=== PATIENT | female | born 1995 | race Caucasian/White ===

== ENCOUNTER 2021-02-10 20:04 | Emergency (ER) | payer MEDICAID, SELFPAY ==
--- NOTE | 2021-02-10 20:30 | RT.EKG_ITS ---
APPROVED REPORT Exam: Resting ECG Reason for Exam: chest pain Patient Location: E HR:109 bpm ECG Measurements Heart Rate 109 AXIS TN 127 P 61 QRSd 79 QRS 65 QT 318 T 29 QTc 428 Conclusion Sinus tachycardia...rate> 99 Probable left atrial enlargement...P >50mS, <-0.10mV V1
[2021-02-10 20:40] VITALS: BP 117/82; PULSE 118; RESP 20; TEMP 36.5; O2SAT 98
[2021-02-10 21:03] VITALS: RESP 20
[2021-02-10 21:04] VITALS: RESP 20
[2021-02-10] MEDS: LORazepam 1 MG TAB PO (22:13)
[2021-02-10 22:28] LABS: Abs Immature Grans 0.02 10^3/uL (0.0-0.06); Absolute Basophil Count 0.08 10^3/uL (0.0-0.2); Absolute Eosinophil Count 0.04 10^3/uL (0.0-0.7); Absolute Lymphocyte Count 2.29 10^3/uL (1.2-3.4); Absolute Monocyte Count 0.77 10^3/uL (0.1-0.8); Basophils % 0.9; Eosinophils % 0.5; HCT 42.6 % (36.0-46.0); HGB 13.7 g/dL (11.2-15.7); Immature Grans % 0.2; Lymphocytes % 26.3; MCH 29.2 pg (27.0-33.0); MCHC 32.2 % (32.0-36.0); MCV 90.8 fL (80-95); MPV 10.5 fL (8.0-11.0); Monocytes % 8.9; Neutrophils % 63.2; Nucleated RBC 0 %; Platelet Count 322 10^3/uL (130-400); RBC 4.69 10^6/uL (3.93-5.22); RDW 12.5 % (11.7-14.6); RDW-SD 41.6 fL
[2021-02-10 22:32] LABS: Bilirubin Negative (Negative); Blood Negative (Negative); Clarity Clear (Clear); Glucose Negative (Negative); Ketones Negative (Negative); Leukocyte Esterase Negative (Negative); Nitrite Negative (Negative); Urobilinogen 0.2 EU/dL (Up TO 0.2)
[2021-02-10 22:44] LABS: ALT 16 U/L (14-59); AST 8 U/L (15-37); Albumin 4.4 g/dL (3.4-5.0); Alkaline Phosphatase 53 U/L (46-116); Anion Gap 7.2 mmol/L (3-11); BUN 15 mg/dL (7-18); Bilirubin, Total 0.3 mg/dL (0.2-1.0); CO2 30.8 mmol/L (21.0-32.0); CREATININE 0.8 mg/dL (0.55-1.02); Calcium 9.3 mg/dL (8.5-10.1); Chloride 106 mmol/L (98-107); Glucose 101 mg/dL (74-106); Potassium 3.7 mmol/L (3.5-5.1); Sodium 144 mmol/L (136-145); Total Protein 8.2 g/dL (6.4-8.2); Troponin I < 0.05 ng/mL (<0.06)
[2021-02-10 22:53] LABS: D-Dimer 120 ng/mlFEU (<500)
--- NOTE | 2021-02-10 23:30 | W.ED.GENAD ---
Discharge Plan Disposition Patient Disposition: HOME Condition: Stable Discharge Details Clinical Impression: Anxiety, Intermittent lower abdominal pain Primary Care Provider: None,None ED Provider: Speedy Sepulveda Discharge Instructions Instructions: Alprazolam (By mouth), Abdominal Pain (ED), Anxiety (ED) Additional Instructions: Please follow[facility] with [facility]. Take Xanax 0.25 mg tablet by mouth once daily for severe anxiety Please contact your primary care physician to arrange follow-up. Return to the ER for any worsening or new concerning symptoms. Referrals: [facility] [Provider Group] [facility] [Provider Group] Medical Decision Making 25-year-old female here with severe anxiety, tearful and feeling overwhelmed, recent chest discomfort as well as shortness of breath and lower right abdominal pain intermittently over the past few weeks. Patient has no abdominal pain at this time. Abdominal exam is benign with no tenderness. Patient is quite anxious and tachycardic Screening ECG was reviewed and interpreted by me: Please see report, sinus tachycardia 109 bpm.. I considered acute pulmonary embolism as well as electrolyte abnormalities. Labs reviewed and nondiagnostic. D-dimer is negative. Troponin is negative. Patient was given Ativan 1 mg orally and then reassess. On reassessment she was noted to be significantly improved, feeling much better with no complaints. She states she feels relaxed. She continues to have no chest pain, shortness of breath or abdominal pain. Plan will be to discharge with outpatient follow-up. She will need primary care established in the area as well as follow-up with gynecology and psychiatric services. HPI General Mode of arrival: ambulatory. Date/Time Provider Initiated Documentation: 02/10/21 20:39. Limitations to Documentation: no limitations. Information obtained by: patient. HPI Narrative: 25-year-old female recently moved to the area, here with overwhelming anxiety. Symptoms are severe and constant just prior to arrival. She notes intermittent tearfulness and anxiety over the past few weeks. No modifiers. No known inciting triggers. Patient notes that she has had intermittent chest discomfort with these episodes and also shortness of breath. She has had some right lower abdominal pain that has been intermittent over the past few weeks. She does not currently have this pain. Pain sometimes seems to go into her vagina. She denies vaginal discharge. Patient does note an irregular missed. A few months back. She has since had regular periods. Patient has not yet established care with a primary care physician or national sales representative in the area. General Stated Complaint: GenMedical SAIDA: 3 Review of Systems All systems reviewed & are unremarkable except as noted in HPI and below Constitutional Constitutional: Denies fever(s) Genitourinary Genitourinary: Denies vaginal discharge [facility] Social History Smoking risk assessment performed?: No Exam Const General: in distress Nutritional Appearance: well nourished Orientation: alert and awake HENMT Head: normocephalic and atraumatic Mouth: moist mucous membranes Eyes Conjunctivae: normal conjunctivae Sclera: normal sclerae EOM: EOM intact bilaterally Neck Neck: trachea midline Resp Auscultation: clear to auscultation bilaterally, no rales, no rhonchi and no wheezes Cardio Jugular venous pressure: no JVD Rate: regular rate and not tachycardic Rhythm: regular rhythm GI Palpation: soft, not firm, no guarding, no masses, not rigid and nontender Skin General skin exam: no rashes or lesions noted Neuro General: patient alert, patient awake, patient oriented x3 and tone normal Extrem General: no edema Psych Appearance: grossly normal Mental Status: mental status grossly normal Speech and Movement: speech and movement normal Mood: anxious mood Affect: anxious affect Attitude: cooperative Thought Content: normal and suicidality Insight: insight good Other: Intermittently tearful Course Vital Signs Vital signs: Vital Signs Temperature 36.5 C 02/10/21 20:40 Pulse 118 H 02/10/21 20:40 Respiratory Rate 20 02/10/21 20:40 Blood Pressure 117/82 02/10/21 20:40 Pulse Oximetry 98 02/10/21 20:40 Temperature 36.5 C 02/10/21 20:40 Temperature Source Tympanic 02/10/21 20:40 Pulse 118 H 02/10/21 20:40 Respiratory Rate 20 02/10/21 21:04 Respiratory Effort Non-Labored 02/10/21 21:04 Respiratory Depth Normal 02/10/21 21:04 Respiratory Pattern Normal 02/10/21 21:03 Blood Pressure 117/82 02/10/21 20:40 Pulse Oximetry 98 02/10/21 20:40 Oxygen Delivery Method Room Air 05/21/21 20:40 Oxygen Flow Rate 0 02/10/21 20:40 Lab/Test Results Lab/Test Results: Laboratory Tests Range/Units 02/10/21 02/10/21 02/10/21 22:15 22:15 22:15 WBC (4.4-10.8) 10^3/uL 8.70 RBC (3.93-5.22) 10^6/uL 4.69 Hgb (11.2-15.7) g/dL 13.7 Hct (36.0-46.0) % 42.6 MCV (80-95) fL 90.8 MCH (27.0-33.0) pg 29.2 MCHC (32.0-36.0) % 32.2 RDW (11.7-14.6) % 12.5 Plt Count (130-400) 10^3/uL 322 MPV (8.0-11.0) fL 10.5 Immature Gran % 0.2 Neutrophils % 63.2 Lymphocytes % 26.3 Monocytes % 8.9 Eosinophils % 0.5 Basophils % 0.9 Nucleated RBC % % 0 Absolute Neutrophils (1.2-6.7) 10^3/uL 5.50 Absolute Lymphocytes (1.2-3.4) 10^3/uL 2.29 Absolute Monocytes (0.1-0.8) 10^3/uL 0.77 Absolute Eosinophils (0.0-0.7) 10^3/uL 0.04 Absolute Basophils (0.0-0.2) 10^3/uL 0.08 D-Dimer (<500) ng/mlFEU 120 Sodium (136-145) mmol/L 144 Potassium (3.5-5.1) mmol/L 3.7 Chloride (98-107) mmol/L 106 Carbon Dioxide (21.0-32.0) mmol/L 30.8 Anion Gap (3-11) mmol/L 7.2 BUN (7-18) mg/dL 15 Creatinine (0.55-1.02) mg/dL 0.8 Estimated GFR/1.73 m2 (mL/min/1.73m2) >= 60.00 Glucose (74-106) mg/dL 101 Calcium (8.5-10.1) mg/dL 9.3 Total Bilirubin (0.2-1.0) mg/dL 0.3 AST (15-37) U/L 8 L ALT (14-59) U/L 16 Alkaline Phosphatase (46-116) U/L 53 Troponin I (<0.06) ng/mL < 0.05 Total Protein (6.4-8.2) g/dL 8.2 Albumin (3.4-5.0) g/dL 4.4 TSH (0.36-3.74) uIU/mL 1.30 Urine Color (Yellow) Urine Clarity (Clear) Urine pH (5-8) Ur Specific [place] (1.005-1.025) Urine Protein (Negative) mg/dL Urine Ketones (Negative) mg/dL Urine Blood (Negative) Urine Nitrite (Negative) Urine Bilirubin (Negative) Urine Urobilinogen (Up TO 0.2) EU/dL Ur Leukocyte Esterase (Negative) Urine Glucose (Negative) mg/dL Range/Units 02/10/21 22:18 WBC (4.4-10.8) 10^3/uL RBC (3.93-5.22) 10^6/uL Hgb (11.2-15.7) g/dL Hct (36.0-46.0) % MCV (80-95) fL MCH (27.0-33.0) pg MCHC (32.0-36.0) % RDW (11.7-14.6) % Plt Count (130-400) 10^3/uL MPV (8.0-11.0) fL Immature Gran % Neutrophils % Lymphocytes % Monocytes % Eosinophils % Basophils % Nucleated RBC % % Absolute Neutrophils (1.2-6.7) 10^3/uL Absolute Lymphocytes (1.2-3.4) 10^3/uL Absolute Monocytes (0.1-0.8) 10^3/uL Absolute Eosinophils (0.0-0.7) 10^3/uL Absolute Basophils (0.0-0.2) 10^3/uL D-Dimer (<500) ng/mlFEU Sodium (136-145) mmol/L Potassium (3.5-5.1) mmol/L Chloride (98-107) mmol/L Carbon Dioxide (21.0-32.0) mmol/L Anion Gap (3-11) mmol/L BUN (7-18) mg/dL Creatinine (0.55-1.02) mg/dL Estimated GFR/1.73 m2 (mL/min/1.73m2) Glucose (74-106) mg/dL Calcium (8.5-10.1) mg/dL Total Bilirubin (0.2-1.0) mg/dL AST (15-37) U/L ALT (14-59) U/L Alkaline Phosphatase (46-116) U/L Troponin I (<0.06) ng/mL Total Protein (6.4-8.2) g/dL Albumin (3.4-5.0) g/dL TSH (0.36-3.74) uIU/mL Urine Color (Yellow) Yellow Urine Clarity (Clear) Clear Urine pH (5-8) 7.0 Ur Specific [place] (1.005-1.025) 1.020 Urine Protein (Negative) mg/dL Negative Urine Ketones (Negative) mg/dL Negative Urine Blood (Negative) Negative Urine Nitrite (Negative) Negative Urine Bilirubin (Negative) Negative Urine Urobilinogen (Up TO 0.2) EU/dL 0.2 Ur Leukocyte Esterase (Negative) Negative Urine Glucose (Negative) mg/dL Negative POC- Test(urine) Negative
[2021-02-10] MEDS: ALPRAZolam 0.25 MG TAB 1 MG PO (23:54)
[2021-02-10 23:55] VITALS: BP 120/76; PULSE 99; RESP 20; TEMP 36.5; O2SAT 98
== END 2021-02-11 00:15 | disposition home or self-care (01) ==
PROVIDERS: Emergency Provider Student in an Organized Health Care Education/Training Program
DX: F41.9 Anxiety disorder, unspecified (principal); R10.31 Right lower quadrant pain; R00.0 Tachycardia, unspecified
CPT/HCPCS: 80053; 81025; 93005; 99283; 81003; 84443; 84484; 85025; 85379; 93010

== ENCOUNTER 2021-02-20 13:18 | Emergency (ER) | payer MEDICAID, SELFPAY ==
[2021-02-20 13:25] VITALS: BP 119/71; PULSE 116; RESP 18; TEMP 36.6; O2SAT 100
--- NOTE | 2021-02-20 13:41 | ED.GENADUL_ITS ---
Discharge Plan Disposition Patient Disposition: HOME Condition: Good Discharge Details Clinical Impression: Anxiety, Headache, Localized superficial swelling of skin Primary Care Provider: None,None ED Provider: Alena Hicks Home Meds and New Rx's Prescriptions: Continued sertraline 50 mg tablet 50 mg PO DAILY RF: 0 lorazepam [Ativan] 0.5 mg tablet 0.5 mg PO DAILY PRNRF: 0 metronidazole 500 mg tablet 500 mg PO BID 7 Days Qty: 14 RF: 0 norethindrone-e.estradiol-iron [Junel FE 1.5/30 (28)] 1.5 mg-30 mcg (21)/75 mg (7) tablet 1 tab PO DAILY Qty: 84 RF: 4 Discharge Instructions Instructions: Anxiety (ED), General Headache (ED) Additional Instructions: The bump on her neck is most consistent with focal area of location such as the bug bite. It does not appear to have any infectious properties. It does not appear to project deeper on the CT scan. There is no evidence of bleeding in your head. The vascular flow is patent. Your physical exam is reassuring. I am concerned that your anxiety may be heightening your symptoms. Please stay active and try to reduce stress as much as possible. Please follow-up with your primary care this week for reevaluation, call tomorrow to schedule follow-up appointment. Please discuss your current symptoms as well as the need to stop your recent medication. If you develop any new or worsening symptoms such as inability stay hydrated, fever/chills, rash, weakness or other new/worsening symptoms please seek care urgently once again. Referrals: Brittney Vidal [NURSE PRACTITIONER] - Discharge Data Discharge Date/Time-TO BE ENTERED AT DEPARTURE: 02/20/21 15:56 Medical Decision Making Patient is a pleasant RHD 25 year old female. She was seen here recently for anxiety. Started on xanax. States that she was then transitioned to sertraline by her PCP but that she has been suffering from ELIZONDO so stopped her medications. Reports that over the past few days she has noted a bump on suzi upper right aspect of her neck. No fevers/chills. No known cause of the bump. States that ELIZONDO have worsened and are now more over the righ tside of her head since the bump developed. Reports that she has also noted tingling in the ring and pinky finger of the right hand. No CP, SOB, fevers, rash. On exam, patient appears anxious. She has a focal raised area that is consistent with soft tissue swelling. No evidence of infection. No nuchal rigidity. Full ROM, no midline tenderness, no pain with Spurlings. Intact neurologic exam with no deficits noted. She has full ROM of the RUE including right hand. She has no increase in symptoms of the hand with testing of the medial or ulnar nerve. As the patient has had lightheadedness, right posterior nec, pain, ELIZONDO, I have considered vertebral artery dissection. Exam is reassuring. Plan to move forward with CTA of neck/head. No objective deficit now. No evidence of infection at the raised area or [employer]. Patient nontoxic. Very anxious. this may also be anxiety d alpaen as she seem to perseverate on her medical issues. ANTERIOR CIRCULATION: Right internal carotid artery: Unremarkable. Intracranial segment is patent with no significant stenosis. No aneurysm. Right middle cerebral artery: Unremarkable. No occlusion or significant stenosis. No aneurysm. Right anterior cerebral artery: Unremarkable. No occlusion or significant stenosis. No aneurysm. Left internal carotid artery: Unremarkable. Intracranial segment is patent with no significant stenosis. No aneurysm. Left middle cerebral artery: Unremarkable. No occlusion or significant stenosis. No aneurysm. Left anterior cerebral artery: Unremarkable. No occlusion or significant stenosis. No aneurysm. POSTERIOR CIRCULATION: Right vertebral artery: Unremarkable. No occlusion or significant stenosis. No aneurysm. Left vertebral artery: Unremarkable. No occlusion or significant stenosis. No aneurysm. Basilar artery: Unremarkable. No occlusion or significant stenosis. No aneurysm. Right posterior cerebral artery: Unremarkable. No occlusion or significant stenosis. No aneurysm. Left posterior cerebral artery: Unremarkable. No occlusion or significant stenosis. No aneurysm. Brain: No definite mass, mass effect, or midline shift. Cerebral ventricles: No ventriculomegaly. Bones/joints: Unremarkable. No acute fracture. Soft tissues: Unremarkable. IMPRESSION: No large vessel stenosis or occlusion. FINDINGS: Brain: Normal. No hemorrhage. Unremarkable white matter. No mass effect. Cerebral ventricles: No ventriculomegaly. Paranasal sinuses: Visualized sinuses are unremarkable. No fluid levels. Mastoid air cells: Visualized mastoid air cells are well aerated. Bones/joints: Unremarkable. No acute fracture. Soft tissues: Unremarkable. IMPRESSION: No acute intracranial abnormality. FINDINGS: Right common carotid artery: No stenosis. No dissection or occlusion. Right internal carotid artery: No stenosis of the extracranial segment. No dissection or occlusion. Right external carotid artery: No occlusion or stenosis of the origin. Left common carotid artery: No stenosis. No dissection or occlusion. Left internal carotid artery: No stenosis of the extracranial segment. No dissection or occlusion. Left external carotid artery: No occlusion or stenosis of the origin. Right vertebral artery: No stenosis. No dissection or occlusion. Left vertebral artery: No stenosis. No dissection or occlusion. Soft tissues: Normal. No significant soft tissue swelling. Bones/joints: No acute fracture. IMPRESSION: No stenosis or occlusion. Labs reviewed. No signficant abnormality. TSH was checked a few days ago, did not recheck this today. I discussed the findings with the patient. Also discussed blood work. At this time, I feel that most of her symptoms are anxiety driven. She has not been able to tolerate the sertraline. I advised that she discuss this further with her primary care. In regard to the small bump on the back of her neck, this is most consistent with some type of bug bite or small cystic structure. I do not see any evidence of infection. I do not think this is was causing her symptoms. Rather, I think this for anxiety around this area is exacerbating her current symptoms. Encourage close follow-up with primary care. Return precautions were discussed. Advised that she could apply cool compress but encouraged that she stop manipulating the area. All of her questions and concerns were addressed and she is in agreement this plan. HPI General Mode of arrival: ambulatory . Date/Time Provider Initiated Documentation: 02/20/21 13:31 . Limitations to Documentation: no limitations . Information obtained by: patient, RN notes reviewed and old records reviewed . HPI Narrative: Patient is a pleasant 25 year old female presenting today with c/c of bump on posterior aspect of right side upper neck. States that this causes pain to radiate up her right side of her head. States she has had intermittent lightheadedness. No fevers/chills. Has tingling in the ring and small finger of right hand, concerned these are linked. Reports overall feeling unwell. Has been taking NSAID without relief. Related Data Home Medications Medication Instructions Recorded Confirmed lorazepam 0.5 mg tablet 0.5 mg PO DAILY PRN 02/15/21 02/20/21 metronidazole 500 mg tablet 500 mg PO BID 7 Days #14 tab 02/15/21 02/20/21 norethindrone 1.5 mg-ethinyl 1 tab PO DAILY #84 tab 02/15/21 02/20/21 estradiol 30 mcg(21)/iron 75 mg(7) tablet sertraline 50 mg tablet 50 mg PO DAILY 02/15/21 Previous Rx's Medication Instructions Recorded metronidazole 500 mg tablet 500 mg PO BID 7 Days #14 tab 02/15/21 norethindrone 1.5 mg-ethinyl 1 tab PO DAILY #84 tab 02/15/21 estradiol 30 mcg(21)/iron 75 mg(7) tablet Allergies Allergy/AdvReac Type Severity Reaction Status Date / Time amoxicillin Allergy Intermediate rash Verified 02/15/21 14:10 General Stated Complaint: Headache SAIDA: 3 Review of Systems Constitutional Constitutional: Reports as per HPI, Denies chills, Reports fatigue, Denies fever(s), Denies frequent falls, Reports headache(s) and Denies weakness Eyes Eyes: Reports as per HPI, Denies blurry vision and Denies change in vision ENT Ears, Nose, Mouth, and Throat: Denies vertigo, Reports headache(s) and Reports neck pain (right posterior side) Cardiovascular Cardiovascular: Reports as per HPI, Denies chest pain, Denies lightheadedness, Denies radiating jaw, neck or arm pain, Denies dyspnea and Denies dyspnea on exertion Respiratory Respiratory: Reports as per HPI, Denies chest congestion, Denies cough, Denies dyspnea, Denies dyspnea on exertion, Denies stridor and Denies wheezing Gastrointestinal Gastrointestinal: Reports as per HPI, Denies abdominal pain, Denies change in bowel habits, Denies nausea and Denies vomiting Musculoskeletal Musculoskeletal: Reports as per HPI, Denies back pain, Denies myalgias, Denies muscle cramps, Reports neck pain (right posterior side), Denies numbness and Reports tingling Integumentary/Breasts Skin/Breast: Reports as per HPI, Denies rash and Reports other (area of swelling) Neurologic Neurologic: Reports as per HPI, Denies abnormal movements, Denies abnormal speech, Denies behavioral changes, Denies confusion, Denies vertigo, Denies frequent falls, Reports headache(s), Denies localized weakness, Denies numbness, Denies sensory deficit, Reports tingling and Denies weakness Psychiatric Psychiatric: Denies behavioral changes and Denies confusion Endocrine Endocrine: Reports fatigue Allergic/Immunologic Allergic/Immunologic: Denies wheezing [employer] [facility] Social History Smoking/Tobacco Use Status: Never Smoking risk assessment performed?: Yes Alcohol Intake: current Alcohol Intake frequency: holidays/special occasions only Substance use type: does not use Do you feel safe at home: Yes Do you feel safe in your relationship?: Yes History History 3 Para 2 Hx # Term Pregnancies Multiple births Hx # Pregnancies Ectopic pregnancies AB induced Hx Number of Living Children AB spontaneous 1 Exam Const General: cooperative, healthy appearing, comfortable, no acute distress, well developed, well groomed and anxious Nutritional Appearance: average body habitus and well nourished Orientation: alert, awake and oriented x3 HENMT Head: normal to inspection, no palpable skull fracture, normocephalic and atraumatic Ears: hearing grossly normal bilaterally, external ears normal and TM's normal bilaterally General nose exam: external nose normal Mouth: oral mucosae normal and moist mucous membranes Throat: posterior oropharynx normal Eyes General: appearance normal, both eyes and all related structures Alignment and Position: alignment normal Periorbital: periorbital findings normal Eyelids: eyelids normal Sclera: sclerae normal Cornea: corneas normal Pupils: PERRL EOM: EOM intact bilaterally Neck Neck: normal visual inspection, full ROM, no lymphadenopathy, no meningeal signs, trachea midline, supple and no lymphadenopathy noted Thyroid: thyroid normal Carotids: normal carotid upstroke Neck images: 1. small focal area of swelling. No erythema, warmth, drainage. Tender to palpation. Mobile. Consistent with soft tissue defect such as cyst, bug bite, ect. No evidence of infection. No palpable lymphadenopiathy Resp Effort & Inspection: normal respiratory effort, able to speak in complete sentences and no respiratory distress Auscultation: clear to auscultation bilaterally, no rales, no rhonchi and no wheezes Cardio Rate: regular rate Rhythm: regular rhythm Heart Sounds: S1 normal and S2 normal Back/Spine/Pelvis Cervical Spine: normal cervical lordosis, cervical ROM normal, No cervical muscular tenderness, No pain with cervical ROM, No step off deformity and other (negative Spurlings test) Skin General skin exam: other (swelling as noted above) Neuro General: patient alert, patient awake and patient oriented x3 Cranial Nerves: CN's II-XI intact bilaterally Cognition: normal cognition Speech: speech normal Gait: normal gait Motor: muscle tone normal throughout, strength 5/5 throughout, no pronator drift, no movement abnormalities noted and no fasciculations Sensory Exam: no sensory deficits noted DTR's: Rt Triceps: 1+, Rt Biceps: 1+ and Rt Brachioradialis: 1+ Coordination: [id number] test normal, elmw-[id number] test normal, Romberg test normal, Does not sway with eyes open and rapid alternating movement UE normal Extrem General: normal to inspection, capillary refill normal, no pedal edema and no calf tenderness Hand/finger images: 1. Indicated area of tingling. Full ROM. Brisk capillary refill. Full ROM of wrist. 2+ distal pulses. Sensation intact at this time. Percussion of the median nerve causes tingling in the bump on her neck. Negative Phalens. No increase in symptoms with percussion over the ulnar nerve or movement of elbow. Able to abduct fingers against resistance, movement against resistance intact in wrist. Psych Appearance: grossly normal and well kempt Mental Status: mental status grossly normal Speech and Movement: speech and movement normal Course Vital Signs Vital signs: Vital Signs Temperature 36.6 C 02/20/21 13:25 Pulse 116 H 02/20/21 13:25 Respiratory Rate 18 02/20/21 13:25 Blood Pressure 119/71 02/20/21 13:25 Pulse Oximetry 100 02/20/21 13:25 Temperature 36.6 C 02/20/21 13:25 Temperature Source Skin 02/20/21 13:25 Pulse 116 H 02/20/21 13:25 Respiratory Rate 18 02/20/21 13:25 Respiratory Effort Non-Labored 02/20/21 13:31 Blood Pressure 119/71 02/20/21 13:25 Blood Pressure Position Sitting 02/20/21 13:25 Pulse Oximetry 100 02/20/21 13:25 Oxygen Delivery Method Room Air 02/20/21 13:25 Oxygen Flow Rate 0 02/20/21 13:25 Pain Level 6 02/20/21 13:25
--- NOTE | 2021-02-20 13:45 | RT.EKG_ITS ---
APPROVED REPORT Exam: Resting ECG Reason for Exam: dizziness Patient Location: E HR:87 bpm ECG Measurements Heart Rate 87 AXIS SD 147 P 76 QRSd 74 QRS 71 QT 346 T 50 QTc 416 Conclusion Sinus rhythm...normal P axis, V-rate 60- 99 Probable left atrial enlargement...P >50mS, <-0.10mV V1 I have reviewed and interpreted ECG and agree with software generated interpretation.
--- NOTE | 2021-02-20 13:45 | DI.CT_ITS ---
Exam(s) CT BRAIN NECK CTA EXAM: CT BRAIN NECK CTA CLINICAL HISTORY: right sided ELIZONDO, dizzy, numbness right hand. TECHNIQUE: Imaging Protocol: Axial CT angiography was performed with multi-slice acquisition and mu lti-planar and/or 3D reconstructions. CONTRAST MATERIAL: Intravenous: Omnipaque 350 Contrast volume:85 mL COMPARISON: No exams were available for comparison FINDINGS: CT Head W/O and W: Ventricles and Extra axial spaces: Normal in size and morphology for the patient's age. Hemorrhage: None. Cerebral parenchyma: Normal. Midline shift: None. Brainstem/Cerebellum: Normal. Calvarium: Normal. Visualized Paranasal sinuses/Mastoids: Clear. Soft Tissues: Unremarkable. Enhancement: Unremarkable. CTA Neck W: Common Carotid: Right: No dissection, occlusion or significant stenosis. Left: No dissection, occlusion or significant stenosis. External Carotid: Right: No occlusion or significant stenosis. Left: No occlusion or significant stenosis. Internal Carotid: Right: No dissection, occlusion or significant stenosis. Left: No dissection, occlusion or significant stenosis. Vertebral Artery: Right: No dissection, occlusion or significant stenosis. Left: No dissection, occlusion or significant stenosis. Lung Apices: Normal. Bones: Normal. Soft Tissues: Normal. CTA Brain W: Internal Carotid Arteries: Petrous: Normal. Cavernous: Normal. Cerebral: Normal. Anterior Cerebral Arteries: Right: No aneurysm, occlusion or significant stenosis. Left: No aneurysm, occlusion or significant stenosis. Middle Cerebral Arteries: Right: No aneurysm, occlusion or significant stenosis. Left: No aneurysm, occlusion or significant stenosis. Posterior cerebral Arteries: Right: No aneurysm, occlusion or significant stenosis. Left: No aneurysm, occlusion or significant stenosis. Vertebral Arteries: Right: No aneurysm, occlusion or significant stenosis. Left: No aneurysm, occlusion or significant stenosis. Basilar Artery: No aneurysm, occlusion or significant stenosis. IMPRESSION: 1. Normal CTA examination of the [place]. 2. Unremarkable noncontrast CT Head. 3. Normal CTA examination of the neck. RADIATION DOSE DELIVERED: 1,571.83mGy.cm Total DLP DATA REPOSITORY: All CT scans at this facility are submitted to the National Radiology Data Registry (NRDR) Dose Index Registry (DIR) with the [employer] ([employer]). RADIATION OPTIMIZATION: All CT scans at this facility use at least one of these dose optimization te chniques: automated exposure control; mA and/or kV adjustment per patient size (includes targeted exa ms where dose is matched to clinical indication); or iterative reconstruction.
[2021-02-20 14:37] LABS: Abs Immature Grans 0.02 10^3/uL (0.0-0.06); Absolute Basophil Count 0.06 10^3/uL (0.0-0.2); Absolute Eosinophil Count 0.01 10^3/uL (0.0-0.7); Absolute Lymphocyte Count 1.57 10^3/uL (1.2-3.4); Absolute Monocyte Count 0.75 10^3/uL (0.1-0.8); Absolute Neutrophil Count 4.57 10^3/uL (1.2-6.7); Basophils % 0.9; Eosinophils % 0.1; HGB 14.4 g/dL (11.2-15.7); Immature Grans % 0.3; Lymphocytes % 22.5; MCH 29.3 pg (27.0-33.0); MCHC 32.7 % (32.0-36.0); MCV 89.6 fL (80-95); MPV 10.5 fL (8.0-11.0); Monocytes % 10.7; Neutrophils % 65.5; Nucleated RBC 0 %; Platelet Count 322 10^3/uL (130-400); RBC 4.91 10^6/uL (3.93-5.22); RDW 12.2 % (11.7-14.6); RDW-SD 40.5 fL; WBC 6.98 10^3/uL (4.4-10.8)
[2021-02-20] MEDS: ACETAMINOPHEN 1,000 MG/100 ML BTL 400 MG IVPB (14:42)
[2021-02-20 14:45] VITALS: BP 116/71; PULSE 97; RESP 14; O2SAT 100
[2021-02-20 14:52] LABS: INR 1.1 (0.9-1.1); PTT Activated 24.1 sec (21.0-27.5)
[2021-02-20 14:55] LABS: ALT 15 U/L (14-59); AST 5 U/L (15-37); Albumin 4.6 g/dL (3.4-5.0); Alkaline Phosphatase 52 U/L (46-116); BUN 17 mg/dL (7-18); Bilirubin, Total 0.6 mg/dL (0.2-1.0); CREATININE 0.8 mg/dL (0.55-1.02); Calcium 9.2 mg/dL (8.5-10.1); Chloride 103 mmol/L (98-107); Glucose 103 mg/dL (74-106); Potassium 3.6 mmol/L (3.5-5.1); Sodium 140 mmol/L (136-145); Total Protein 8.5 g/dL (6.4-8.2)
[2021-02-20] MEDS: Omnipaque 350 MG/ML 100 ML BTL IV (15:10)
[2021-02-20] MEDS: Normal Saline Flush 10 ML SYR IVP (15:11)
[2021-02-20] MEDS: Normal Saline - Diluent 50 ML VIAL IV (15:11)
--- NOTE | 2021-02-20 15:25 | DI.VRAD_ITS ---
PROCEDURE INFORMATION: Exam: CT Angiography Head With Contrast, Arteriography Exam date and time: 02/20/2021 2:01 PM Age: 25 years old Clinical indication: Other: Right sided ELIZONDO, dizzy, numbness right hand TECHNIQUE: Imaging protocol: Computed tomography angiography of the head with contrast. Exam focused on the arteries. 3D rendering (Not supervised by radiologist): MIP and/or 3D reconstructed images were created by the technologist. Contrast material: OMNIPAQUE 350; Contrast volume: 85 ml; Contrast route: INTRAVENOUS (IV); COMPARISON: No relevant prior studies available. FINDINGS: ANTERIOR CIRCULATION: Right internal carotid artery: Unremarkable. Intracranial segment is patent with no significant stenosis. No aneurysm. Right middle cerebral artery: Unremarkable. No occlusion or significant stenosis. No aneurysm. Right anterior cerebral artery: Unremarkable. No occlusion or significant stenosis. No aneurysm. Left internal carotid artery: Unremarkable. Intracranial segment is patent with no significant stenosis. No aneurysm. Left middle cerebral artery: Unremarkable. No occlusion or significant stenosis. No aneurysm. Left anterior cerebral artery: Unremarkable. No occlusion or significant stenosis. No aneurysm. POSTERIOR CIRCULATION: Right vertebral artery: Unremarkable. No occlusion or significant stenosis. No aneurysm. Left vertebral artery: Unremarkable. No occlusion or significant stenosis. No aneurysm. Basilar artery: Unremarkable. No occlusion or significant stenosis. No aneurysm. Right posterior cerebral artery: Unremarkable. No occlusion or significant stenosis. No aneurysm. Left posterior cerebral artery: Unremarkable. No occlusion or significant stenosis. No aneurysm. Brain: No definite mass, mass effect, or midline shift. Cerebral ventricles: No ventriculomegaly. Bones/joints: Unremarkable. No acute fracture. Soft tissues: Unremarkable. IMPRESSION: No large vessel stenosis or occlusion. PROCEDURE INFORMATION: Exam: CT Head Without Contrast Exam date and time: 02/20/2021 2:01 PM Age: 25 years old Clinical indication: Other: Right sided ELIZONDO, dizzy, numbness right hand TECHNIQUE: Imaging protocol: Computed tomography of the head without contrast. COMPARISON: No relevant prior studies available. FINDINGS: Brain: Normal. No hemorrhage. Unremarkable white matter. No mass effect. Cerebral ventricles: No ventriculomegaly. Paranasal sinuses: Visualized sinuses are unremarkable. No fluid levels. Mastoid air cells: Visualized mastoid air cells are well aerated. Bones/joints: Unremarkable. No acute fracture. Soft tissues: Unremarkable. IMPRESSION: No acute intracranial abnormality. PROCEDURE INFORMATION: Exam: CT Angiography Neck With Contrast Exam date and time: 02/20/2021 2:01 PM Age: 25 years old Clinical indication: Other: Right sided ELIZONDO, dizzy, numbness right hand TECHNIQUE: Imaging protocol: Computed tomography angiography of the neck with contrast. 3D rendering (Not supervised by radiologist): MIP and/or 3D reconstructed images were created by the technologist. Radiation optimization: All CT scans at this facility use at least one of these dose optimization techniques: automated exposure control; mA and/or kV adjustment per patient size (includes targeted exams where dose is matched to clinical indication); or iterative reconstruction. Contrast material: OMNIPAQUE 350; Contrast volume: 85 ml; Contrast route: INTRAVENOUS (IV); COMPARISON: No relevant prior studies available. FINDINGS: Right common carotid artery: No stenosis. No dissection or occlusion. Right internal carotid artery: No stenosis of the extracranial segment. No dissection or occlusion. Right external carotid artery: No occlusion or stenosis of the origin. Left common carotid artery: No stenosis. No dissection or occlusion. Left internal carotid artery: No stenosis of the extracranial segment. No dissection or occlusion. Left external carotid artery: No occlusion or stenosis of the origin. Right vertebral artery: No stenosis. No dissection or occlusion. Left vertebral artery: No stenosis. No dissection or occlusion. Soft tissues: Normal. No significant soft tissue swelling. Bones/joints: No acute fracture. IMPRESSION: No stenosis or occlusion. REFERENCES: NASCET CRITERIA. The degree of internal carotid artery stenosis is based on NASCET criteria. Normal is no stenosis. Mild is less than 50% stenosis. Moderate is 50-69% stenosis. Severe is 70% to 99% stenosis. Total occlusion is no detectable patent lumen. Dictated and Authenticated by: Isidro Perez MD. Ordering:MADDISON Carvajal MD
[2021-02-20 15:48] VITALS: BP 104/67; PULSE 85; RESP 16; TEMP 36.8; O2SAT 99
== END 2021-02-20 15:56 | disposition home or self-care (01) ==
PROVIDERS: Emergency Provider Physician Assistant
DX: F41.9 Anxiety disorder, unspecified (principal); R51.9 Headache, unspecified; R22.31 Localized swelling, mass and lump, right upper limb
CPT/HCPCS: 36415; 70496; 70498; 80053; 81025; 93005; 96374; 99285; 85025; 85610; 85730; 93010; 99283; J0131; J3490

== ENCOUNTER 2021-02-24 20:37 | Outpatient (REF) | payer MEDICAID, SELFPAY ==
[2021-02-26 11:06] LABS: COVID-19 RT-PCR UVMMC Result Negative (Negative)
== END 2021-02-24 20:38 | disposition home or self-care (01) ==
LOC: LBN 20:37
PROVIDERS: Visit Provider Physician Assistant Medical
DX: Z20.822 Contact with and (suspected) exposure to COVID-19 (principal); R51.9 Headache, unspecified
CPT/HCPCS: U0003

== ENCOUNTER 2022-02-09 14:50 | Outpatient (REF) | payer MEDICAID, SELFPAY ==
[2022-02-10 21:45] LABS: HSV 1 DNA Result Negative (Negative); HSV 2 DNA Result Negative (Negative); Varicella Zoster DNA Result Negative ((See Note))
== END 2022-02-09 14:51 | disposition home or self-care (01) ==
LOC: NCHCN 14:50
PROVIDERS: Visit Provider Nurse Practitioner Family
DX: B37.9 Candidiasis, unspecified (principal); R19.7 Diarrhea, unspecified
CPT/HCPCS: 87529; 87798

== ENCOUNTER 2022-02-12 16:53 | Outpatient (REF) | payer MEDICAID, SELFPAY ==
[2022-02-14 10:24] LABS: Campylobacter PCR Negative (Negative); Salmonella PCR Negative (Negative); Shiga Toxin PCR Negative (Negative); Shigella/Enteroinvasive Ecoli Negative (Negative)
== END 2022-02-12 16:54 | disposition home or self-care (01) ==
LOC: NCHCN 16:53
PROVIDERS: Visit Provider Nurse Practitioner Family
DX: R19.7 Diarrhea, unspecified (principal)
CPT/HCPCS: 87505

== ENCOUNTER 2022-08-03 16:29 | Outpatient (REF) | payer MEDICAID, SELFPAY ==
[2022-08-03 19:43] LABS: HCT 41.6 % (36.0-46.0); MCHC 31.3 % (32.0-36.0); MCV 90 fL (80-95); MPV 11.6 fL (8.0-11.0); Platelet Count 321 10^3/uL (130-400); RBC 4.64 10^6/uL (3.93-5.22); RDW 12.6 % (11.7-14.6); RDW-SD 41.6 fL; WBC 6.67 10^3/uL (4.4-10.8)
[2022-08-03 20:02] LABS: Anion Gap 5.4 mmol/L (3-11); BUN 11 mg/dL (7-18); CO2 30.6 mmol/L (21.0-32.0); CREATININE 0.8 mg/dL (0.55-1.02); Calcium 9.4 mg/dL (8.5-10.1); Chloride 105 mmol/L (98-107); Estimated GFR 102.22 (mL/min/1.73m2); Glucose 103 mg/dL (74-106); Potassium 3.6 mmol/L (3.5-5.1); Sodium 141 mmol/L (136-145); TSH (W/Ref FT4) 0.44 uIU/mL (0.36-3.74)
== END 2022-08-03 16:30 | disposition home or self-care (01) ==
LOC: NCHCN 16:29
PROVIDERS: Visit Provider Nurse Practitioner Family
DX: R68.89 Other general symptoms and signs (principal); Z00.00 Encounter for general adult medical examination without abnormal findings
CPT/HCPCS: 80048; 85027; 84443

== ENCOUNTER 2022-08-30 15:39 | Outpatient (REF) | payer MEDICAID, SELFPAY | END 2022-08-30 15:40 | disposition home or self-care (01) | LOC: NCHCN 15:39 | PROVIDERS: PCP Nurse Practitioner Family; Visit Provider Nurse Practitioner Family | DX: R30.0 Dysuria (principal) | CPT/HCPCS: 87086 ==

== ENCOUNTER 2023-10-11 10:31 | Outpatient (REF) | payer MEDICAID, SELFPAY ==
[2023-10-11 15:24] LABS: Abs Immature Grans 0.01 10^3/uL (0.0-0.06); Absolute Basophil Count 0.06 10^3/uL (0.0-0.2); Absolute Eosinophil Count 0.02 10^3/uL (0.0-0.7); Absolute Lymphocyte Count 1.87 10^3/uL (1.2-3.4); Absolute Monocyte Count 0.68 10^3/uL (0.1-0.8); Absolute Neutrophil Count 3.47 10^3/uL (1.2-6.7); Eosinophils % 0.3; HCT 42.4 % (36.0-46.0); HGB 13.4 g/dL (11.2-15.7); Immature Grans % 0.2; Lymphocytes % 30.6; MCH 28.3 pg (27.0-33.0); MCHC 31.6 % (32.0-36.0); MCV 90 fL (80-95); MPV 10.8 fL (8.0-11.0); Monocytes % 11.1; Neutrophils % 56.8; Platelet Count 337 10^3/uL (130-400); RBC 4.74 10^6/uL (3.93-5.22); RDW 12.6 % (11.7-14.6); RDW-SD 41.5 fL; WBC 6.11 10^3/uL (4.4-10.8)
[2023-10-11 15:32] LABS: ESR 12 mm/hr (0-20)
[2023-10-11 15:35] LABS: ALT 16 U/L (14-59); AST 11 U/L (15-37); Albumin 4.2 g/dL (3.4-5.0); Alkaline Phosphatase 40 U/L (46-116); Anion Gap 9.4 mmol/L (3-11); BUN 15 mg/dL (7-18); Bilirubin, Total 0.5 mg/dL (0.2-1.0); C-Reactive Protein 0.35 mg/dL (0.0-0.3); CO2 27.6 mmol/L (21.0-32.0); CREATININE 0.7 mg/dL (0.55-1.02); Calcium 9.3 mg/dL (8.5-10.1); Chloride 104 mmol/L (98-107); Estimated GFR 119.24 (mL/min/1.73m2); Glucose 100 mg/dL (74-106); Potassium 4.2 mmol/L (3.5-5.1); Sodium 141 mmol/L (136-145); Total Protein 7.6 g/dL (6.4-8.2)
== END 2023-10-11 10:32 | disposition home or self-care (01) ==
LOC: NCHCN 10:31
PROVIDERS: PCP Student in an Organized Health Care Education/Training Program; Visit Provider Student in an Organized Health Care Education/Training Program
DX: M54.2 Cervicalgia (principal); R59.0 Localized enlarged lymph nodes; R79.82 Elevated C-reactive protein (CRP)
CPT/HCPCS: 80053; 85652; 85025; 86140

== ENCOUNTER 2023-10-21 18:13 | Outpatient (REF) | payer MEDICAID, SELFPAY ==
[2023-10-21 16:36] LABS: Iron 104 ug/dL (50-170); Total Iron Binding Capacity 283 ug/dL (250-450); Transferrin Sat 37 % (15-50)
[2023-10-21 17:04] LABS: FREE T4 0.98 ng/dL (0.76-1.46); Ferritin 54 ng/mL (8-252); TSH 0.81 uIU/mL (0.36-3.74); Vitamin B12 1239 pg/mL (193-986)
[2023-10-21 17:50] LABS: Vitamin D 25 Total 37.2 ng/mL (30-100)
[2023-10-21 22:55] LABS: T3, Total 149 ng/dL (97-169)
[2023-10-22 10:37] LABS: Lyme Ab w Rflx to Lyme Confirm Negative (Negative)
[2023-10-23 14:05] LABS: Anaplasma phagocytophilum Negative (Negative); B. miyamotoi PCR Negative (Negative); Babesia divergens/MO-1 Negative (Negative); Babesia duncani Negative (Negative); Babesia microti Negative (Negative); Ehrlichia chaffeensis Negative (Negative); Ehrlichia ewingii/canis Negative (Negative); Ehrlichia muris eauclairensis Negative (Negative)
== END 2023-10-21 18:14 | disposition home or self-care (01) ==
LOC: NCHCN 18:13
PROVIDERS: PCP Student in an Organized Health Care Education/Training Program; Visit Provider Student in an Organized Health Care Education/Training Program
DX: R53.83 Other fatigue (principal); E55.9 Vitamin D deficiency, unspecified; E53.8 Deficiency of other specified B group vitamins; Z86.2 Personal history of diseases of the blood and blood-forming organs and certain disorders involving the immune mechanism
CPT/HCPCS: 82306; 87798; 82607; 82728; 83540; 83550; 84439; 84443; 84480; 86618

== ENCOUNTER 2023-11-06 11:18 | Outpatient (REF) | payer MEDICAID, SELFPAY | END 2023-11-06 11:19 | disposition home or self-care (01) | LOC: LBN 11:18 | PROVIDERS: PCP Student in an Organized Health Care Education/Training Program; Visit Provider Physician Assistant | DX: J02.9 Acute pharyngitis, unspecified (principal) | CPT/HCPCS: 87070 ==